=== PATIENT | male | born 1970 | race Caucasian/White ===

== ENCOUNTER 2025-01-17 20:03 | Observation (INO) ==
[2025-01-17] MEDS: MoRPHine SULFATE 4 MG/ML 1 ML CARP\\VIAL IV PRN (20:53)
[2025-01-17] MEDS: ONDANSETRON INJ 2 MG/ML 2 ML VIAL IV STA (20:53)
--- NOTE | 2025-01-17 21:04 | Emergency Department Note ---
Impression & Plan Enteritis, Abdominal pain, acute, left lower quadrant, Acute lower GI bleeding ED Provider Note NAME: YVONNE MOSLEY AGE: 54 SEX: M : 1970 ARRIVES VIA: Walk-In INFORMANT: Patient, ED PROVIDER(S): Roddy Hinds DO CHIEF COMPLAINT: Abdominal pain HPI: The patient is a 54-year-old male who does not have a primary care physician who presented to the emergency department for abdominal pain. The patient states he initially started having epigastric pain which is now in his lower abdomen. The patient denies having any rectal bleeding. He denies having any testicular pain or flank pain. The patient has not seen a doctor prior to coming to the emergency department. He was at work today and after doing some heavy lifting he noticed the pain was worsened. He denies having any bulging in his groin. ROS: See above HPI for pertinent positives & negatives. A total of 10 systems reviewed and were otherwise negative. PAST MEDICAL HISTORY: See Below PAST SURGICAL HISTORY: See Below FAMILY HISTORY: See Below SOCIAL HISTORY: See Below HOME MEDICATIONS: See Below ALLERGIES: See Below VITALS: See Below PHYSICAL EXAMINATION: GENERAL: The patient is awake and alert. The patient is very anxious and appears to be uncomfortable. EYES: The conjunctivae are clear. The pupils are round and reactive. EARS, NOSE, MOUTH AND THROAT: The nose is without any evidence of any deformity. Mucous membranes are moist. Tongue is midline. NECK: The neck is nontender and supple. RESPIRATORY: Normal respiratory effort is noted there is no evidence of wheezing rhonchi or rales CARDIOVASCULAR: Regular rate and rhythm noted there no murmurs rubs or gallops normal S1 normal S2. GASTROINTESTINAL: The abdomen is soft and mildly distended. There is epigastric tenderness to palpation but also guarding in the left lower quadrant MUSCULOSKELETAL/EXTREMITIES: There is no evidence of gross deformity full range of motion is noted in the hips and shoulders. SKIN: There is no obvious evidence of any rash. There are no petechiae, pallor or cyanosis noted. NEUROLOGIC: Patient is awake alert and oriented x3 MEDICAL DECISION MAKING: The patient is a 54-year-old male who presented to the emergency department for an evaluation of lower abdominal pain. The patient had significant left-sided abdominal pain on physical exam. I discussed the patient's laboratory and radiographic studies with him. He was treated with IV fluids as well as IV pain medication in the emergency department. I discussed his condition with the on- call liquor establishment manager. Given his ongoing pain as well as the fact the patient has no primary care physician I do feel that he would not be a good candidate for outpatient management. For this reason I will discuss his condition with the on-call [facility]. Triage Nursing notes reviewed. Prior medical records reviewed Vital Signs: reviewed and remarkable for elevated blood pressure. Differential diagnosis: Etiologies such as appendicitis, diverticulitis, obstruction, inflammatory bowel disease, renal colic, PUD, biliary pathology, pancreatitis, mesenteric ischemia, aortic pathology, infections, genitourinary, UTI, perforated viscus, as well as others were entertained. ER treatment provided: See below Diagnostics interpreted by me: ECG: EKG was obtained in the emergency department. My interpretation is normal sinus rhythm at 69 bpm. There is no ectopy. There is no acute ST segment abnormalities noted. Cardiac Monitoring: An order was placed for continuous cardiac monitoring. The monitor shows a rate of 63 bpm with sinus rhythm. Laboratory studies: As stated above and show below. Imaging studies: See below. Radiographic imaging was reviewed by myself Consultation(s): I discussed this case with Dr. Daniels who is on-call for gastroenterology. I discussed this case with Dr. León who is on-call for the [facility]. Past Med/Surg History Problem List (Updated 01/17/25 @ 23:21 by Roddy Hinds DO) Acute lower GI bleeding (Acute) Abdominal pain, acute, left lower quadrant (Acute) Enteritis (Acute) Medical History High cholesterol Social History Smoking Status: Current every day smoker Preferred Language: Guyanese Feels Safe at Home: Yes Allergies Allergies Allergy/AdvReac Type Severity Reaction Status Date / Time No Known Allergies Allergy Unverified 01/17/25 21:57 Results & Data (ED) Vital Signs Vital Signs - 24 hr 01/17/25 20:08 01/17/25 20:58 01/17/25 20:59 Temperature 36.7 C Temperature Source Temporal Artery Scan Pulse Rate 78 70 Pulse Rate [Apical] 81 Pulse Rhythm Regular Pulse Rhythm [Apical] Regular Pulse Strength [Apical] Normal Respiratory Rate 16 16 18 Respiratory Effort / Characteristics Non-Labored Spontaneous Respiratory Depth Normal Respiratory Pattern Regular Blood Pressure 221/114 H Blood Pressure [Left Arm] 168/99 H Blood Pressure Mean 149 Blood Pressure Mean [Left Arm] 122 Blood Pressure Position [Left Arm] Sitting Pulse Oximetry 95 94 93 Oxygen Delivery Method Room Air Room Air Room Air Sepsis Recent Fever Within 48 Hours No Sepsis New/Unexplained Change in Mental Status No Sepsis Action Taken by Nursing No Action Required 01/17/25 21:08 01/17/25 22:04 Temperature Temperature Source Pulse Rate 74 Pulse Rate [Apical] 63 Pulse Rhythm Pulse Rhythm [Apical] Regular Pulse Strength [Apical] Normal Respiratory Rate 16 Respiratory Effort / Characteristics Non-Labored Spontaneous Respiratory Depth Normal Respiratory Pattern Regular Blood Pressure Blood Pressure [Left Arm] 171/109 H Blood Pressure Mean Blood Pressure Mean [Left Arm] 129 Blood Pressure Position [Left Arm] Sitting Pulse Oximetry 92 Oxygen Delivery Method Room Air Sepsis Recent Fever Within 48 Hours Sepsis New/Unexplained Change in Mental Status Sepsis Action Taken by [facility] Medications Current Medication List: was personally reviewed by me Laboratory Data Attestation: I reviewed the patient's lab results. 01/17/25 20:35 01/17/25 20:35 Lab Results 01/17/25 01/17/25 Range/Units 20:35 20:57 WBC 10.27 (4.8-10.8) K/ul RBC 5.00 (4.70-6.10) M/uL Hgb 16.1 (14.0-18.0) g/dl Hct 44.6 (42.0-52.0) % MCV 89.2 (80.0-100.0) fL MCH 32.2 (25.0-34.0) pg MCHC 36.1 H (32.0-36.0) g/dL RDW Std Deviation 42.8 (36.4-46.3) fL RDW Coeff of Sole 13.1 (11.5-14.5) % Plt Count 218 (130-400) K/uL MPV 10.6 (9.4-12.4) fL Immature Gran % (Auto) 0.3 % Neut % (Auto) 70.3 % Lymph % (Auto) 17.1 % [place] % (Auto) 6.2 % Eos % (Auto) 5.6 % Baso % (Auto) 0.5 % Neut # (Auto) 7.21 H (1.40-6.50) K/uL Lymph # (Auto) 1.76 (1.20-3.40) K/uL [place] # (Auto) 0.64 H (0.11-0.59) K/uL Eos # (Auto) 0.58 H (0.00-0.50) K/uL Baso # (Auto) 0.05 (0.00-0.20) K/uL Immature Gran # (Auto) 0.03 (0.01-0.20) K/uL Sodium 133 L (136-145) mmol/L Potassium 3.6 (3.5-5.1) mmol/L Chloride 99 (98-107) mmol/L Carbon Dioxide 27 (21-32) mmol/L Anion Gap 7 (3-11) BUN 16 (6-23) mg/dl Creatinine 1.22 (0.6-1.4) mg/dl Est Cr Clr Drug Dosing 84.4 ml/min eGFR 71.33 BUN/Creatinine Ratio 13.1 (10-20) Glucose 132 H (70-99(Fasting)) mg/dl Calcium 9.8 (8.6-10.3) mg/dl Total Bilirubin 1.1 H (0.2-1.0) mg/dl AST 20 (13-39) U/L ALT 20 (7-52) U/L Alkaline Phosphatase 59 (34-104) U/L Troponin I High Sens 9.4 (0-20) pg/ml Total Protein 7.5 (6.0-8.3) gm/dl Albumin 4.3 (3.4-5.0) gm/dl Globulin 3.2 (2.5-4.0) gm/dl Albumin/Globulin Ratio 1.3 (0.9-2) Lipase 15 (11-82) U/L Urine Color Yellow Urine Appearance Clear (Clear) Urine pH 6.0 (4.5-7.5) Ur Specific [place] 1.021 (1.000-1.030) Urine Protein Negative (Negative) Urine Glucose (UA) Negative (Negative) Urine Ketones Negative (Negative) Urine Blood Negative (Negative) Urine Nitrite Negative (Negative) Urine Bilirubin Negative (Negative) Urine Urobilinogen Negative (Negative) Ur Leukocyte Esterase Negative (Negative) Administered Medications Morphine Sulfate (Morphine Sulfate 4 Mg/Ml 1 Ml Carp\Vial) 4 mg IV Q15M PRN PRN Reason: Pain Stop: 01/31/25 20:44 Last Admin: 01/17/25 23:10 Dose: 4 mg Documented By: Admin: 01/17/25 20:53 Dose: 4 mg Documented By: CARLIE Discontinued Medications Ioversol (Optiray 320 100ml) 90 ml IV ONCE ONE Stop: 01/17/25 21:20 Last Admin: 01/17/25 21:19 Dose: 90 ml Documented By: CHENTE Ondansetron HCl (Ondansetron Inj 2 Mg/Ml 2 Ml Vial) 4 mg IV NOW STA Stop: 01/17/25 20:46 Last Admin: 01/17/25 20:53 Dose: 4 mg Documented By: CARLIE Imaging Data Attestation: I personally reviewed and interpreted this imaging study as follows: My Impression: See CT abdomen and pelvis was obtained in the emergency department. My interpretation is no free air or definite bowel obstruction, final report below. Radiologist's Impression: Abdomen/Pelvis CT 01/17/25 20:45 Exam(s): CT ABDOMEN + PELVIS With Contrast IV Amt: 90 ml optiray 320 EXAM: CT Abdomen and Pelvis With Intravenous Contrast CLINICAL HISTORY: LLQ pain. TECHNIQUE: Axial computed tomography images of the abdomen and pelvis with intravenous contrast. CTDI is 24.23 mGy and DLP is 1092.95 mGy-cm. Automated exposure control was utilized for the study. A dose lowering technique was utilized adhering to the principles of ALARA. CONTRAST: Patient received 90 ml optiray 320 of IV contrast COMPARISON: No relevant prior studies available. FINDINGS: Lung bases: Unremarkable. No mass. No consolidation. ABDOMEN: Liver: Minimal fat infiltration anteriorly in the liver adjacent to the falciform ligament, common finding in this region. The liver otherwise demonstrates no focal abnormality. Gallbladder and bile ducts: Unremarkable. No calcified stones. No ductal dilation. Pancreas: Unremarkable. No mass. No ductal dilation. Spleen: Unremarkable. No splenomegaly. Adrenals: Unremarkable. No mass. Kidneys and ureters: Kidneys demonstrate normal enhancement. No pyelonephritis or hydronephrosis. There is a 3 cm cyst involving the medial aspect of the right mid pole kidney. Stomach and bowel: There is abnormal mucosal thickening involving several distal small bowel loops in the pelvis and right lower quadrant with adjacent mesenteric fat stranding and mild free fluid. Mild stool burden. No diverticulitis. Mesenteric fat stranding adjacent to the abnormal small bowel loops. No definitive developing obstruction. PELVIS: Appendix: A normal retrocecal appendix is noted. Bladder: Unremarkable. No mass. Reproductive: Unremarkable as visualized. ABDOMEN and PELVIS: Intraperitoneal space: Trace free fluid in the perihepatic region, right paracolic gutter and surrounding the abnormal small bowel loops. Bones/joints: No acute fracture. No dislocation. Soft tissues: Unremarkable. Vasculature: Mild atherosclerotic calcification. No dissection or aneurysm. Lymph nodes: Nonspecific mesenteric lymph nodes. No other lymphadenopathy. IMPRESSION: There is abnormal mucosal thickening involving several distal small bowel loops in the pelvis and right lower quadrant with adjacent mesenteric fat stranding and mild free fluid. Findings are most consistent with distal enteritis. No definitive findings to suggest developing high-grade bowel obstruction. Electronically signed by: Saturnino Choi MD 01/17/25 23:00 PM Discharge Plan Visit Data Chief Complaint: Abdominal Pain Stated Complaint: ABD PAIN ED Provider: Roddy Hinds Discharge Problem: Enteritis, Abdominal pain, acute, left lower quadrant, Acute lower GI bleeding Patient Disposition: Being Evaluated by Hospitalist Forms Stand Alone Forms: My [facility] Referrals Referrals: PCP,NO [Physician] -
[2025-01-17 21:09] LABS: Albumin Globulin Ratio 1.3 (0.9-2); Albumin Level 4.3 gm/dl (3.4-5.0); BUN Creatinine Ratio 13.1 (10-20); Bilirubin,Total 1.1 mg/dl (0.2-1.0); Calcium 9.8 mg/dl (8.6-10.3); Creatinine Clr Calc Pharmacy 84.4 ml/min; Globulin 3.2 gm/dl (2.5-4.0); Potassium 3.6 mmol/L (3.5-5.1); Total Protein 7.5 gm/dl (6.0-8.3)
[2025-01-17] MEDS: OPTIRAY 320 100ml IV ONE (21:19)
[2025-01-17 21:24] LABS: Appearance Urine Clear (Clear); Bilirubin Urine Negative (Negative); Blood Urine Negative (Negative); Color Urine Yellow; Glucose Urine UA Negative (Negative); Ketones Urine Negative (Negative); Leukocyte Esterase Urine Negative (Negative); Nitrite Urine Negative (Negative); Protein Urine Negative (Negative); Specific Gravity Urine 1.021 (1.000-1.030); Urobilinogen Urine Negative (Negative)
[2025-01-17 21:50] LABS: Basophils # (auto) 0.05 K/uL (0.00-0.20); Basophils % (auto) 0.5 %; Eosinophils # (auto) 0.58 K/uL (0.00-0.50); Eosinophils % (auto) 5.6 %; Hematocrit (blood only) 44.6 % (42.0-52.0); Hemoglobin 16.1 g/dl (14.0-18.0); Immature Granulocytes # (auto) 0.03 K/uL (0.01-0.20); Immature Granulocytes % (auto) 0.3 %; Lymphocytes # (auto) 1.76 K/uL (1.20-3.40); Lymphocytes % (auto) 17.1 %; Mean Corpuscular Hemoglobin 32.2 pg (25.0-34.0); Mean Corpuscular Hgb Conc 36.1 g/dL (32.0-36.0); Mean Corpuscular Volume 89.2 fL (80.0-100.0); Mean Platelet Volume 10.6 fL (9.4-12.4); Monocytes # (auto) 0.64 K/uL (0.11-0.59); Monocytes % (auto) 6.2 %; Neutrophils # (auto) 7.21 K/uL (1.40-6.50); Neutrophils % (auto) 70.3 %; Platelet Count 218 K/uL (130-400); RDW Coefficient of Variation 13.1 % (11.5-14.5); RDW Standard Deviation 42.8 fL (36.4-46.3); White Blood Count 10.27 K/ul (4.8-10.8)
[2025-01-17 21:56] LABS: Troponin I High Sensitivity 9.4 pg/ml (0-20)
--- NOTE | 2025-01-17 23:01 | CT Scan Report ---
Exam(s): CT ABDOMEN + PELVIS With Contrast IV Amt: 90 ml optiray 320 EXAM: CT Abdomen and Pelvis With Intravenous Contrast CLINICAL HISTORY: LLQ pain. TECHNIQUE: Axial computed tomography images of the abdomen and pelvis with intravenous contrast. CTDI is 24.23 mGy and DLP is 1092.95 mGy-cm. Automated exposure control was utilized for the study. A dose lowering technique was utilized adhering to the principles of ALARA. CONTRAST: Patient received 90 ml optiray 320 of IV contrast COMPARISON: No relevant prior studies available. FINDINGS: Lung bases: Unremarkable. No mass. No consolidation. ABDOMEN: Liver: Minimal fat infiltration anteriorly in the liver adjacent to the falciform ligament, common finding in this region. The liver otherwise demonstrates no focal abnormality. Gallbladder and bile ducts: Unremarkable. No calcified stones. No ductal dilation. Pancreas: Unremarkable. No mass. No ductal dilation. Spleen: Unremarkable. No splenomegaly. Adrenals: Unremarkable. No mass. Kidneys and ureters: Kidneys demonstrate normal enhancement. No pyelonephritis or hydronephrosis. There is a 3 cm cyst involving the medial aspect of the right mid pole kidney. Stomach and bowel: There is abnormal mucosal thickening involving several distal small bowel loops in the pelvis and right lower quadrant with adjacent mesenteric fat stranding and mild free fluid. Mild stool burden. No diverticulitis. Mesenteric fat stranding adjacent to the abnormal small bowel loops. No definitive developing obstruction. PELVIS: Appendix: A normal retrocecal appendix is noted. Bladder: Unremarkable. No mass. Reproductive: Unremarkable as visualized. ABDOMEN and PELVIS: Intraperitoneal space: Trace free fluid in the perihepatic region, right paracolic gutter and surrounding the abnormal small bowel loops. Bones/joints: No acute fracture. No dislocation. Soft tissues: Unremarkable. Vasculature: Mild atherosclerotic calcification. No dissection or aneurysm. Lymph nodes: Nonspecific mesenteric lymph nodes. No other lymphadenopathy. IMPRESSION: There is abnormal mucosal thickening involving several distal small bowel loops in the pelvis and right lower quadrant with adjacent mesenteric fat stranding and mild free fluid. Findings are most consistent with distal enteritis. No definitive findings to suggest developing high-grade bowel obstruction. Electronically signed by: Saturnino Choi MD 01/17/25 23:00 PM
--- NOTE | 2025-01-18 01:34 | History & Physical Report ---
Date of Service January 18, 2025 Assessment & Plan (1) Enteritis: Plan: 54-year-old male with past medical history significant for hypertension was placed on antihypertensive medication couple of years ago by his family doctor but he could not tolerated it and was changed to different medication and again was not tolerating it and stopped taking, history of hyperlipidemia, currently not on any medications who is not from this area comes because of severe abdomi nal pain. Patient says since yesterday morning he is having severe abdominal pain. Initially started in epigastric region then was having pain all over the abdomen. He had few small episodes of diarrhea. Denies any blood in the stools. No fevers. No nausea. Denies any chest pain. No shortness of breath. Has smoker's cough. No headache. No runny nose or sore throat. No rash. Hemodynamics are okay. Abdominal pain Enteritis on CAT scan Had few episodes of diarrhea Will follow stool studies N.p.o. for now IV fluids IV antiemetics as needed IV pain meds as needed GI consult in a.m. further recommendation History of hypertension Currently not taking medication IV hydralazine as needed Will monitor Tobacco abuse Needs counseling Refuses nicotine patch Alcoholism Says drinks 3 shots daily but did not drink since last Thursday Will place him on thiamine and folic acid IV Ativan as needed Close monitor DVT prophylaxis Lovenox Disposition Medical floor Full code History of Present Illness Chief Complaint: Abdominal pain Primary Care Provider: BUCK CAO 54-year-old male with past medical history significant for hypertension was placed on antihypertensive medication couple of years ago by his family doctor tanisha ut he could not tolerated it and was changed to different medication and again was not tolerating it and stopped taking, history of hyperlipidemia, currently not on any medications who is not from this area comes because of severe abdominal pain. Patient says since yesterday morning he is having severe abdominal pain. Initially started in epigastric region then was having pain all over the abdomen. He had few small episodes of diarrhea. Denies any blood in the stools. No fevers. No nausea. Denies any chest pain. No shortness of breath. Has smoker's cough. No headache. No runny nose or sore throat. No rash. Hemodynamics are okay. Past medical history. As mentioned above. Past surgical history. Eye surgery as a child. Right hand surgery. Social history. Smokes 2 packs a day. Trying to quit. Says drinks 3 shots of hard liquor daily but did not drink since last Thursday. Once in a while smokes pot Family history. Father had prostate cancer. Mother had pancreatic cancer. Allergies Allergy/AdvReac Type Severity Reaction Status Date / Time No Known Allergies Allergy Unverified 01/17/25 21:57 Home Medications Medication Instructions Recorded Confirmed Type No Known Home Medications 01/18/25 01/18/25 History Past Med/Surg History Problem List (Updated 01/17/25 @ 23:21 by Roddy Hinds DO) Acute lower GI bleeding (Acute) Abdominal pain, acute, left lower quadrant (Acute) Enteritis (Acute) Medical History High cholesterol Social History Smoking Status: Current every day smoker Tobacco Type: Cigarettes Second Hand Exposure: No; Do You Dip or Chew Tobacco: No; Tobacco Cessation Education Requested by Patient: No Hx Alcohol Use: No Hx Substance Use: No Preferred Language: Yi Communication Ability: Effective Paper Coating Supervisor Required: No Beliefs That Will Affect Care: None Current Living Situation: Alone Other Information That Helps Us Care for You: No Feels Safe at Home: Yes Safety Concerns: Feels Safe At This Time Assistive Devices: None Review of Systems Review of Systems: All systems reviewed & are unremarkable except as noted in HPI & below Physical Exam Physical Exam: General- Not in distress Head- atraumatic Eyes- PERRL. ENT- oropharynx clear Neck- supple, no JVD. Lungs- clear to auscultation no wheezing or crackles Heart- regular rate and rhythm; no murmur, no gallop. Abdomen- normal bowel sounds, soft, diffuse tender with mild guarding, no distension. Extremities- no pretibial edema, no e Neuro- alert, oriented x 3; PERRL, EOMI; no facial palsy; no dysarthria; motor 5/5 bilaterally; no cogwheel rigidity; patellar DTRs +2/2; toes downgoing bilaterally; finger to nose intact bilaterally Skin- warm & dry Results & Data Results & Data Vital Signs (Past 12 Hours) Vital Signs Temp Pulse Pulse Resp BP BP Pulse Ox 01/18/25 01:11 61 01/18/25 00:00 56 L 16 152/90 H 92 01/17/25 22:04 63 16 171/109 H 92 01/17/25 21:08 74 01/17/25 20:59 70 18 93 01/17/25 20:58 81 16 168/99 H 94 01/17/25 20:08 36.7 C 78 16 221/114 H 95 O2 Del Method 01/18/25 01:11 01/18/25 00:00 Room Air 01/17/25 22:04 Room Air 01/17/25 21:08 01/17/25 20:59 Room Air 01/17/25 20:58 Room Air 01/17/25 20:08 Room Air Code Status & VTE Plan VTE Prophylaxis Plan VTE Prophylaxis will be ordered: Yes
[2025-01-18] MEDS: HYDROmorphone INJ 0.5 MG/0.5 ML SYR IV STA (01:41)
[2025-01-18] MEDS: D5W AND 1/2NSS 1,000 ML IV SCH (01:41)
[2025-01-18] MEDS: THIAMINE HCL 100 MG in SYRINGE 9 ML IV STA (02:08)
[2025-01-18] MEDS: FOLIC ACID 1 MG in SYRINGE 9.8 ML IV STA (02:08)
[2025-01-18] MEDS: FAMOTIDINE 20MG IV PUSH 20 MG/5 ML SYR IV STA (02:08)
[2025-01-18] MEDS ORDERED: HYDROmorphone INJ 0.5 MG/0.5 ML SYR IV PRN (02:35)
[2025-01-18] MEDS ORDERED: LORazepam 2 MG/1 ML VIAL IV PRN (02:35)
[2025-01-18] MEDS ORDERED: ONDANSETRON INJ 2 MG/ML 2 ML VIAL IV PRN (02:35)
[2025-01-18] MEDS: HYDROmorphone INJ 0.5 MG/0.5 ML SYR IV PRN (04:57)
[2025-01-18 06:40] LABS: Basophils # (auto) 0.05 K/uL (0.00-0.20); Basophils % (auto) 0.6 %; Eosinophils # (auto) 0.71 K/uL (0.00-0.50); Eosinophils % (auto) 8.5 %; Hematocrit (blood only) 46.3 % (42.0-52.0); Hemoglobin 16.4 g/dl (14.0-18.0); Immature Granulocytes # (auto) 0.03 K/uL (0.01-0.20); Immature Granulocytes % (auto) 0.4 %; Lymphocytes # (auto) 2.01 K/uL (1.20-3.40); Lymphocytes % (auto) 24.2 %; Mean Corpuscular Hemoglobin 31.8 pg (25.0-34.0); Mean Corpuscular Hgb Conc 35.4 g/dL (32.0-36.0); Mean Corpuscular Volume 89.7 fL (80.0-100.0); Monocytes # (auto) 0.65 K/uL (0.11-0.59); Monocytes % (auto) 7.8 %; Neutrophils # (auto) 4.86 K/uL (1.40-6.50); Neutrophils % (auto) 58.5 %; Platelet Count 197 K/uL (130-400); RDW Coefficient of Variation 12.9 % (11.5-14.5); RDW Standard Deviation 42.6 fL (36.4-46.3); Red Blood Count 5.16 M/uL (4.70-6.10); White Blood Count 8.31 K/ul (4.8-10.8)
[2025-01-18 06:57] LABS: BUN Creatinine Ratio 10.2 (10-20); Creatinine Clr Calc Pharmacy 95.4 ml/min; Magnesium 1.8 mg/dl (1.7-2.4)
[2025-01-18] MEDS: CEROVITE ADV FORMULA TAB PO SCH (07:58)
[2025-01-18] MEDS: FOLIC ACID 1 MG TAB PO SCH (07:58)
[2025-01-18] MEDS: THIAMINE HCL 100 MG TAB PO SCH (07:58)
[2025-01-18] MEDS: ENOXAPARIN INJ 40 MG/0.4 ML SYR SQ SCH (07:59)
[2025-01-18] MEDS: FAMOTIDINE 20MG IV PUSH 20 MG/5 ML SYR IV SCH (08:00)
[2025-01-18] MEDS: hydrALAZINE HCL 20 MG/ML VIAL IV PRN (08:02)
--- NOTE | 2025-01-18 09:39 | Gastrointestinal Consultation ---
Date of Consultation January 18, 2025 Assessment & Plan (1) Enteritis: 54 year old male with history of HTN, dyslipidemia who is in town for work who presented to the ED w/ report of severe abd pain and loose stools CTAP w/ enteritis, no WBC elevation, lactic acid non-elevated. KUB today if abd pain persists to check bowel gas pattern Follow stool PCR and c.diff Continue supportive measures NPO for bowel rest --> advance to liquids as tolerated IV Fluid for hydration Antiemetics PRN Analgesia PRN Encouraged early ambulation and OOB to chair as tolerated ETOH and tobacco cessation encouraged Omeprazole 20 mg once daily No current indication for inpatient endoscopic evaluation. He should follow up back home with a GI for EGD/Colonoscopy for evaluation of his chronic GI symptoms. I spent a total of 60 minutes on the date of service in review of patient's record, and previously obtained information in person and appropriate medical visit, discussion and education of plan, with patient and/or caregiver, placing orders for tests/referral/procedures as medically necessary and documentation of pertinent clinical information in patient's medical records for their visit today. Supervising Physician Co-Signing Physician Notes I saw and examined this patient with our nurse practitioner and agree with her assessment and plan. Reviewed CT scan of the abdomen with radiology which reveals significant small bowel thickening consistent with enteritis. No evidence of bowel obstruction or other pathology most consistent with an infectious enteritis likely viral. Despite significant abdominal pain no peritoneal signs and lab work is essentially normal with a normal lactate level. Will continue to keep him n.p.o. IV fluids check stool studies for pathogens. If his symptoms persist or intensify would consider surgical consult. History of Present Illness Reason for Consultation: abd pain, enteritis Requesting Physician: Crow Davis DO Attending Physician: Crow Davis DO History of Present Illness 54 year old male with history of HTN, dyslipidemia who is in town for work who presented to the ED w/ report of severe abd pain - GI was asked to evaluate for enteritis. Pt was seen and evaluated, chart reviewed. He does report he has chronic gastrointestinal symptoms but has never undergone a formal investigation. He reports he has chronic loose stools, reports maybe 3-4 ep isodes of diarrhea daily. Does not typically have abdominal pain. Does not typically see any blood or mucus in his stools. Reports he developed some abd pain about 24 hours ago. At onset this was epigastric in location and he had initially thought it was GERD. He had some mild nausea associated w/ the pain but no vomiting. The pain persisted, worsened in severity and become constant prompting ED evaluation. He reports the pain is controlled w/ analgesia but he can still tell it is present. He suggests with the pain he had three or four loose, watery bowel movements. There was some mucous with the BMs but no blood. Daily ETOH use Daily tobacco use Uses NSAIDs PRN MSK symptoms CTAP w/ abnormal mucosal thickening involving several distal small bowel loops, most consistent with distal enteritis, no definitive findings to suggest developing high-grade bowel obstruction Has never had EGD/Colonoscopy No family history of GI malignancy No family history of UC, Crohn's or celiac Allergies Allergy/AdvReac Type Severity Reaction Status Date / Time No Known Allergies Allergy Unverified 01/17/25 21:57 Home Medications Medication Instructions Recorded Confirmed Type No Known Home Medications 01/18/25 01/18/25 History Patient History Medical History High cholesterol Social History Smoking Status: Current every day smoker Tobacco Type: Cigarettes Second Hand Exposure: No; Do You Dip or Chew Tobacco: No; Tobacco Cessation Education Requested by Patient: No Hx Alcohol Use: No Hx Substance Use: No Preferred Language: Chilean Communication Ability: Effective Tunneller Required: No Beliefs That Will Affect Care: None Current Living Situation: Alone Other Information That Helps Us Care for You: No Feels Safe at Home: Yes Safety Concerns: Feels Safe At This Time Assistive Devices: None Review of Systems Review of Systems: All other findings negative except as noted in HPI. Physical Exam Constitutional: WD/WN, vitals as above Respiratory: normal respiratory effort Cardiovascular: Rate/Rhythm: regular rate Gastrointestinal (Abdomen): Inspection/Auscultation: + abdomen distended Percussion/Palpation: + abdomen tender and abdomen soft Pt notes his distention seems improved from last evening. Bowel sounds present but hypoactive on examination. Skin: no rashes, warm and dry Results & Data Vital Signs (Past 12 Hours) Vital Signs Temp Pulse Pulse Resp BP Pulse Ox O2 Del Method 01/18/25 07:55 62 18 197/105 H 99 Nasal Cannula 01/18/25 07:32 55 L 01/18/25 05:00 66 20 172/100 H 93 Nasal Cannula 01/18/25 03:00 60 16 168/102 H 94 Nasal Cannula 01/18/25 01:47 98.4 F 61 20 176/103 H 91 Room Air 01/18/25 01:11 61 01/18/25 00:00 56 L 16 152/90 H 92 Room Air 01/17/25 22:04 63 16 171/109 H 92 Room Air O2 Flow Rate 01/18/25 07:55 2 01/18/25 07:32 01/18/25 05:00 2 01/18/25 03:00 2 01/18/25 01:47 01/18/25 01:11 01/18/25 00:00 01/17/25 22:04 Laboratory Results 01/18/25 01/18/25 01/17/25 Range/Units 07:08 06:27 20:57 WBC 8.31 (4.8-10.8) K/ul RBC 5.16 (4.70-6.10) M/uL Hgb 16.4 (14.0-18.0) g/dl Hct 46.3 (42.0-52.0) % MCV 89.7 (80.0-100.0) fL MCH 31.8 (25.0-34.0) pg MCHC 35.4 (32.0-36.0) g/dL RDW Std Deviation 42.6 (36.4-46.3) fL RDW Coeff of Sole 12.9 (11.5-14.5) % Plt Count 197 (130-400) K/uL MPV 10.0 (9.4-12.4) fL Immature Gran % (Auto) 0.4 % Neut % (Auto) 58.5 % Lymph % (Auto) 24.2 % Cedar % (Auto) 7.8 % Eos % (Auto) 8.5 % Baso % (Auto) 0.6 % Neut # (Auto) 4.86 (1.40-6.50) K/uL Lymph # (Auto) 2.01 (1.20-3.40) K/uL Cedar # (Auto) 0.65 H (0.11-0.59) K/uL Eos # (Auto) 0.71 H (0.00-0.50) K/uL Baso # (Auto) 0.05 (0.00-0.20) K/uL Immature Gran # (Auto) 0.03 (0.01-0.20) K/uL Sodium 134 L (136-145) mmol/L Potassium 4.0 (3.5-5.1) mmol/L Chloride 102 (98-107) mmol/L Carbon Dioxide 28 (21-32) mmol/L Anion Gap 4 (3-11) BUN 11 (6-23) mg/dl Creatinine 1.08 (0.6-1.4) mg/dl Est Cr Clr Drug Dosing 95.4 ml/min eGFR 82.57 BUN/Creatinine Ratio 10.2 (10-20) Glucose 111 H (70-99(Fasting)) mg/dl Lactate 0.8 (0.4-2.0) mmol/L Calcium 9.0 (8.6-10.3) mg/dl Magnesium 1.8 (1.7-2.4) mg/dl Total Bilirubin (0.2-1.0) mg/dl AST (13-39) U/L ALT (7-52) U/L Alkaline Phosphatase (34-104) U/L Troponin I High Sens (0-20) pg/ml Total Protein (6.0-8.3) gm/dl Albumin (3.4-5.0) gm/dl Globulin (2.5-4.0) gm/dl Albumin/Globulin Ratio (0.9-2) Lipase (11-82) U/L Urine Color Yellow Urine Appearance Clear (Clear) Urine pH 6.0 (4.5-7.5) Ur Specific Davis 1.021 (1.000-1.030) Urine Protein Negative (Negative) Urine Glucose (UA) Negative (Negative) Urine Ketones Negative (Negative) Urine Blood Negative (Negative) Urine Nitrite Negative (Negative) Urine Bilirubin Negative (Negative) Urine Urobilinogen Negative (Negative) Ur Leukocyte Esterase Negative (Negative) 01/17/25 Range/Units 20:35 WBC 10.27 (4.8-10.8) K/ul RBC 5.00 (4.70-6.10) M/uL Hgb 16.1 (14.0-18.0) g/dl Hct 44.6 (42.0-52.0) % MCV 89.2 (80.0-100.0) fL MCH 32.2 (25.0-34.0) pg MCHC 36.1 H (32.0-36.0) g/dL RDW Std Deviation 42.8 (36.4-46.3) fL RDW Coeff of Sole 13.1 (11.5-14.5) % Plt Count 218 (130-400) K/uL MPV 10.6 (9.4-12.4) fL Immature Gran % (Auto) 0.3 % Neut % (Auto) 70.3 % Lymph % (Auto) 17.1 % Cedar % (Auto) 6.2 % Eos % (Auto) 5.6 % Baso % (Auto) 0.5 % Neut # (Auto) 7.21 H (1.40-6.50) K/uL Lymph # (Auto) 1.76 (1.20-3.40) K/uL Cedar # (Auto) 0.64 H (0.11-0.59) K/uL Eos # (Auto) 0.58 H (0.00-0.50) K/uL Baso # (Auto) 0.05 (0.00-0.20) K/uL Immature Gran # (Auto) 0.03 (0.01-0.20) K/uL Sodium 133 L (136-145) mmol/L Potassium 3.6 (3.5-5.1) mmol/L Chloride 99 (98-107) mmol/L Carbon Dioxide 27 (21-32) mmol/L Anion Gap 7 (3-11) BUN 16 (6-23) mg/dl Creatinine 1.22 (0.6-1.4) mg/dl Est Cr Clr Drug Dosing 84.4 ml/min eGFR 71.33 BUN/Creatinine Ratio 13.1 (10-20) Glucose 132 H (70-99(Fasting)) mg/dl Lactate (0.4-2.0) mmol/L Calcium 9.8 (8.6-10.3) mg/dl Magnesium (1.7-2.4) mg/dl Total Bilirubin 1.1 H (0.2-1.0) mg/dl AST 20 (13-39) U/L ALT 20 (7-52) U/L Alkaline Phosphatase 59 (34-104) U/L Troponin I High Sens 9.4 (0-20) pg/ml Total Protein 7.5 (6.0-8.3) gm/dl Albumin 4.3 (3.4-5.0) gm/dl Globulin 3.2 (2.5-4.0) gm/dl Albumin/Globulin Ratio 1.3 (0.9-2) Lipase 15 (11-82) U/L Urine Color Urine Appearance (Clear) Urine pH (4.5-7.5) Ur Specific Davis (1.000-1.030) Urine Protein (Negative) Urine Glucose (UA) (Negative) Urine Ketones (Negative) Urine Blood (Negative) Urine Nitrite (Negative) Urine Bilirubin (Negative) Urine Urobilinogen (Negative) Ur Leukocyte Esterase (Negative) PG Care Time/CCT Total # of Minutes Spent Total Time Spent with Patient: Total time spent is greater than 50% in coordination of care (as documented) at patient's floor/unit and/or counseling patient: Coding Level of Care Code 66419 IN/OBS CONSULT LVL 4,60M Diagnoses Enteritis K52.9
[2025-01-18] MEDS ORDERED: hydrALAZINE HCL 20 MG/ML VIAL IV PRN (12:33)
--- NOTE | 2025-01-18 12:36 | Hospitalist Progress Note ---
Date of Service January 18, 2025 Assessment & Plan (1) Enteritis: (2) Ileus due to infection: (3) Hypertension, uncontrolled: Plan Suspect patient may be developing ileus in the setting of his enteritis most likely due to a viral infection Continue supportive care, IV fluids Start Bentyl for cramping Patient willing to try amlodipine again for blood pressure control Adjust parameters on IV hydralazine Encourage activity Monitor labs in a.m. Check KUB Admission and Anticipated Discharge Date Admission Date: January 18, 2025 Subjective Patient states that the bloating and abdominal pain a little bit better but still very uncomfortable. Does not remember what blood pressure medications he is been on in the past. He did say amlodipine and lisinopril sounded familiar. He states that he stopped the medicines because of body aches and muscle aches. However, he thinks he was also on a cholesterol pill. This would be much more consistent side effects of a statin. He also states that is because he cannot get to his PCP regularly he runs out of his prescriptions. Physical Exam Physical Exam: Constitutional: Alert, moderate discomfort HEENT: Mucous membranes moist. Lungs: Clear to auscultation, decreased, no wheezes rales or rhonchi CV: S1-S2, regular Abdomen: Distended, hypoactive, high-pitched bowel sounds, diffuse tenderness with some mild guarding, no rigidity Extremities: No significant edema Neuro: No focal deficits Psych: Cooperative, normal mood Results & Data Results & Data Vital Signs (Past 12 Hours) Vital Signs Temp Pulse Pulse Resp BP Pulse Ox O2 Del Method 01/18/25 12:06 62 23 161/102 H 96 Nasal Cannula 01/18/25 07:55 62 18 197/105 H 99 Nasal Cannula 01/18/25 07:32 55 L 01/18/25 05:00 66 20 172/100 H 93 Nasal Cannula 01/18/25 03:00 60 16 168/102 H 94 Nasal Cannula 01/18/25 01:47 36.9 C 61 20 176/103 H 91 Room Air 01/18/25 01:11 61 O2 Flow Rate 01/18/25 12:06 2 01/18/25 07:55 2 01/18/25 07:32 01/18/25 05:00 2 01/18/25 03:00 2 01/18/25 01:47 01/18/25 01:11 Diagnostic Findings Reviewed imaging, laboratory and diagnostic studies. Pertinent findings as below.
[2025-01-18] MEDS: amLODIPine BESYLATE 5 MG TAB PO SCH (12:40)
--- NOTE | 2025-01-18 13:01 | XRay Report ---
KUB HISTORY: ileus COMPARISON STUDY: 01/17/2025 FINDINGS: There is minimal retained stool. No bowel obstruction seen. No gross free air. IMPRESSION: No acute findings seen by plain film. ACT 112: Negative or not required by law. The above report was generated using voice recognition software. It may contain grammatical, syntax o r spelling errors. Electronically signed by: Ernesto Ellis M.D. 01/18/2025 1:00 PM
[2025-01-18] MEDS: DICYCLOMINE HCL 20 MG TAB PO PRN (17:26)
--- NOTE | 2025-01-18 21:45 | Electrocardiogram Report ---
Test Reason : Blood Pressure : */* mmHG Vent. Rate : 69 BPM Atrial Rate : 69 BPM P-R Int : 130 ms QRS Dur : 84 ms QT Int : 412 ms P-R-T Axes : 61 38 57 degrees QTcB Int : 441 ms Normal sinus rhythm Minimal voltage criteria for LVH, may be normal variant ( Sokolow-Holguin ) Borderline ECG No previous ECGs available Confirmed by Jan Galeano ([id number]) on 01/18/2025 9:45:18 PM Referred By: REFERRED SELF Confirmed By: Jan Galeano
[2025-01-19 06:54] LABS: Hematocrit (blood only) 46.4 % (42.0-52.0); Hemoglobin 16.2 g/dl (14.0-18.0); Mean Corpuscular Hemoglobin 31.3 pg (25.0-34.0); Mean Corpuscular Hgb Conc 34.9 g/dL (32.0-36.0); Mean Corpuscular Volume 89.7 fL (80.0-100.0); Mean Platelet Volume 10.2 fL (9.4-12.4); Platelet Count 203 K/uL (130-400); RDW Coefficient of Variation 12.6 % (11.5-14.5); RDW Standard Deviation 41.6 fL (36.4-46.3); Red Blood Count 5.17 M/uL (4.70-6.10); White Blood Count 8.72 K/ul (4.8-10.8)
[2025-01-19 07:28] LABS: BUN Creatinine Ratio 8.7 (10-20); Calcium 8.7 mg/dl (8.6-10.3); Magnesium 1.8 mg/dl (1.7-2.4); Phosphorus 3.2 mg/dl (2.5-4.9); Potassium 3.7 mmol/L (3.5-5.1)
[2025-01-19 08:16] LABS: Adenovirus F 40/41 PCR Not Detected (NotDetected); Astrovirus PCR Not Detected (NotDetected); Campylobacter PCR Not Detected (NotDetected); Cryptosporidium PCR Not Detected (NotDetected); Cyclospora cayetanensis PCR Not Detected (NotDetected); Entamoeba histolytica PCR Not Detected (NotDetected); Enteroaggregative E.coli(EAEC) Not Detected (NotDetected); Enteropathogenic E.coli (EPEC) Not Detected (NotDetected); Enterotoxigenic E.coli (ETEC) Not Detected (NotDetected); Giardia lamblia PCR Not Detected (NotDetected); Norovirus GI/GII PCR Not Detected (NotDetected); Plesiomonas shigelloides PCR Not Detected (NotDetected); Rotavirus A PCR Not Detected (NotDetected); Salmonella PCR Not Detected (NotDetected); Sapovirus PCR Not Detected (NotDetected); Shiga-like Toxin E.coli (STEC) Not Detected (NotDetected); Shigella/Enteroinvasive E.coli Not Detected (NotDetected); Vibrio cholerae PCR Not Detected (NotDetected); Vibrio species PCR Not Detected (NotDetected); Yersinia enterocolitica PCR Not Detected (NotDetected)
--- NOTE | 2025-01-19 08:37 | Gastroenterology Progress Note ---
Date of Service January 19, 2025 Assessment & Plan (1) Enteritis: Plan: 54 year old male with history of HTN, dyslipidemia who is in town for work who presented to the ED w/ report of severe abd pain and loose stools CTAP w/ enteritis, no WBC elevation, lactic acid non-elevated. KUB w/o signs of obstruction. Stool PCR preliminary but negative to date Follow stool studies and c.diff Trial of clear liquids --> advance to low reside/lactose free as tolerated Continue supportive measures IV Fluid for hydration Antiemetics PRN Analgesia PRN Encouraged early ambulation and OOB to chair as tolerated ETOH and tobacco cessation encouraged Omeprazole 20 mg once daily No current indication for inpatient endoscopic evaluation. He should follow up back home with a GI for EGD/Colonoscopy for evaluation of his chronic GI symptoms. I spent a total of 40 minutes on the date of service in review of patient's record, and previously obtained information in person and appropriate medical visit, discussion and education of plan, with patient and/or caregiver, placing orders for tests/referral/procedures as medically necessary and documentation of pertinent clinical information in patient's medical records for their visit today.Thank you for allowing us to participate in the care of this patient. Please call with any acute changes, questions or concerns. Please see addendum below with additional recommendation from my supervising physician. Admission and Anticipated Discharge Date Admission Date: January 18, 2025 Supervising Physician Co-Signing Physician Notes I saw and examined this patient with our nurse practitioner and agree with her assessment and plan. Clinically improved this morning. Less abdominal pain passing gas and having bowel movements. Suspect resolving infectious enteritis. Await stool studies. Advance diet as tolerated. Possible DC in the next 12 to 24 hours depending upon his progress clinically. Subjective Pain is less severe. Was able to move his bowels. No black or bloody stools. No nausea, vomiting. Preliminary stool studies are negative. Review of Systems Review of Systems: All other findings negative except as noted in HPI. Physical Exam Constitutional: WD/WN, vitals as above Respiratory: normal respiratory effort, lungs clear to auscultation Cardiovascular: RRR, no murmur, no edema Gastrointestinal (Abdomen): normal bowel sounds, soft, nontender, no hepatosplenomegaly Skin: no rashes, warm and dry Results & Data Results & Data Vital Signs (Past 12 Hours) Vital Signs Temp Pulse Resp BP Pulse Ox O2 Del Method 01/19/25 07:55 98.4 F 59 L 20 164/97 H 95 Room Air 01/18/25 22:48 98.6 F 70 18 145/84 H 96 Room Air PG Care Time/CCT Total # of Minutes Spent Total Time Spent with Patient: Total time spent is greater than 50% in coordination of care (as documented) at patient's floor/unit and/or counseling patient: Coding Level of Care Code 83072 SUB INP/OBS CARE 2/35MIN Diagnoses Enteritis K52.9
--- NOTE | 2025-01-19 12:05 | Discharge Summary ---
Discharge Summary Date of Service January 19, 2025 Principal Dx & Hospital Course #1 = Principal Diagnosis (1) Enteritis: (2) Ileus due to infection: (3) Hypertension, uncontrolled: Plan Patient is a 54-year-old gentleman presented emergency room with acute onset of abdominal pain and diarrhea. Imaging in the ED is consistent with enteritis. Referred to hospital service for ongoing care. Patient admitted to the hospital. He is put on bowel rest. Given IV fluid resuscitation. GI consultation was obtained. They recommended ongoing supportive care no endoscopy was indicated. The course of his hospitalization his abdominal pain improved and his diet was advanced. Patient also was noted to be hypertensive. He has a known diagnosis of high blood pressure. He states that he had been on antihypertensive medications previously but stopped them on his own. He stopped them because he was having some myalgias. However he reports at the same time he is on a cholesterol medicine. This most likely was a statin and that would be much more consistent with an effect of the statin then a blood pressure medicine with his complaints of myalgias. He was started on amlodipine here in the hospital. He tolerated it well and had good improvement of his blood pressure. On the morning of discharge his abdominal pain is significantly improved. Patient was anxious to advance his diet. Tolerates advancing his diet he will be discharged home to follow-up with his outpatient providers. Notes For Next Care Provider May need additional titration of antihypertensive medications Recommend GI consultation and his home health system. Patient would be candidate for EGD/colonoscopy to evaluate his chronic GI symptoms. Medication Changes From Visit Bentyl as needed for abdominal cramping Zofran as needed nausea Amlodipine for blood pressure Admission HPI Per Admitting Provider 54-year-old male with past medical history significant for hypertension was placed on antihypertensive medication couple of years ago by his family doctor but he could not tolerated it and was changed to different medication and again was not tolerating it and stopped taking, history of hyperlipidemia, currently not on any medications who is not from this area comes because of severe abdominal pain. Patient says since yesterday morning he is having severe abdominal pain. Initially started in epigastric region then was having pain all over the abdomen. He had few small episodes of diarrhea. Denies any blood in the stools. No fevers. No nausea. Denies any chest pain. No shortness of breath. Has smoker's cough. No headache. No runny nose or sore throat. No rash. Hemodynamics are okay. Past medical history. As mentioned above. Past surgical history. Eye surgery as a child. Right hand surgery. Social history. Smokes 2 packs a day. Trying to quit. Says drinks 3 shots of hard liquor daily but did not drink since last Thursday. Once in a while smokes pot Family history. Father had prostate cancer. Mother had pancreatic cancer. Admission Exam Per Admitting Provider See H&P Discharge Exam Constitutional: Alert, nontoxic HEENT: Mucous membranes moist. Lungs: Clear to auscultation, decreased, no wheezes rales or rhonchi CV: S1-S2, regular Abdomen: Soft, mild tenderness, no guarding, no rigidity, no distention Extremities: No significant edema Neuro: No focal deficits Psych: Cooperative, normal mood Updated Medication List Medication Instructions Recorded Confirmed Type amlodipine 10 mg tablet (Norvasc) 10 mg PO DAILY #30 tabs 01/19/25 Rx dicyclomine 20 mg tablet 20 mg PO QID PRN abdominal cramps 01/19/25 Rx #10 tabs amnxocpv-[id number] acid 0.4 1 tab PO QAM #30 tabs 01/19/25 Rx mg-lycopene 300 mcg-lutein 250 mcg tablet ([employer] Senior) ondansetron HCl 8 mg tablet 8 mg PO Q8H PRN nausea and 01/19/25 Rx vomiting 3 days #10 tabs Hospital Stay Data Consultations 01/17/25 23:15 ED Decision to Admit Stat 01/18/25 08:00 Consult Gastroenterology Routine Diagnostic Imagining Performed 01/17/25 20:45 CT abd pelvis IV con only Stat Reviewed imaging, laboratory and diagnostic studies. Pertinent findings as below. KUB no evidence of obstruction or ileus CBC within normal ranges Electrolytes within normal or ranges Creatinine 1.04 Glucose 103 Stool BioFire negative for viral gastroenteritis Pending Results Patient Have Any Pending Studies at Discharge: Yes Discharge Instructions Given to Patient (Per Discharging Provider) Recommend you follow-up with your PCP within the next 30 days to ensure continuation of your antihypertensive medication Total Time Total Time Spent Total Time Spent (In Minutes): 33
[2025-01-19 14:05] VITALS: RESP 18; TEMP 98.1; O2SAT 97
[2025-01-19 16:58] VITALS: BP 138/78; PULSE 72
[2025-01-23 13:21] LABS: C.diff Toxin B, Qual RT-PCR NOT DETECTED (NOT DETECTED)
== END 2025-01-19 17:16 | disposition home or self-care (01) | DRG 392 ==
LOC: ED 20:03 → INTOOBSV 01-18 01:28 → EDINP 01-18 01:28 → 3W 01-18 01:29